=== PATIENT | female | born 1945 | race Caucasian/White ===

== ENCOUNTER → 2019-11-24 | Outpatient (CLI) | payer MEDICARE, OTHER ==
[~2019-11-24] MED LIST: ADV250INH INH; AMLO2.5T3 PO; BYST10TA2 PO; CREO24CA PO; DESV50TA PO; ECOT81TA5 PO; HUMA100I5 SQ; IRBE150T7 PO; LANTINJ4 SQ; LEVO112T2 PO; SERO1TAB3 PO; SPIR1CAP INH
== END ==
LOC: M LABSMTC 09:10
PROVIDERS: ATTEND Anesthesiology
DX: Z03.818 Encounter for observation for suspected exposure to other biological agents ruled out (principal); Z11.59 Encounter for screening for other viral diseases
CPT/HCPCS: C9803; U0003

== ENCOUNTER 2019-11-27 09:44 | Day surgery (SDC) | payer MEDICARE, OTHER ==
[~2019-11-27] VITALS: Ht 162.6 cm; Wt 92.0 kg
[~2019-11-27 09:44] MED LIST changes: +NS 1,000 ML IV ONE
--- NOTE | 2019-11-27 12:14 | ROOR ---
Patient Name: Kayla Tineo Procedure Date: 11/27/2019 11:42 AM Date of : 1945 Age: 74 Room: [facility] Gender: Female Note Status: Finalized Procedure: Upper Endoscopy + Biopsies Indications: Abnormal CT of the GI tract Providers: Monster Hyman MD Referring MD: Misha Fry DO Requesting Provider: Medicines: Monitored Anesthesia Care Complications: No immediate complications. Procedure: Pre-Anesthesia Assessment: - The heart rate, respiratory rate, oxygen saturations, blood pressure, adequacy of pulmonary ventilation, and response to care were monitored throughout the procedure. The Endoscope was introduced through the mouth, and advanced to the second part of duodenum. The upper GI endoscopy was accomplished without difficulty. The patient tolerated the procedure well. Findings: The Z-line was irregular and was found 40 cm from the incisors. Multiple biopsies were obtained with cold forceps for evaluation to rule out Long's Esophagus randomly at the gastroesophageal junction. A medium-sized hiatal hernia was present. No other significant abnormalities were identified in a careful examination of the stomach. A large frond-like/villous mass with no bleeding was found in the duodenal bulb. Biopsies were taken with a cold forceps for histology. The exam was otherwise without abnormality. Impression: - Z-line irregular, 40 cm from the incisors. - Medium-sized hiatal hernia. - Rule out malignancy, duodenal mass. Biopsied. - The examination was otherwise normal. - Multiple biopsies were obtained at the gastroesophageal junction. - The examination was otherwise normal. Recommendation: - Await pathology results. - Discharge patient to home. - Continue present medications. - Await pathology results. - Telephone GI clinic for pathology results in 1 week. - Perform an upper endoscopic ultrasound (UEUS) at appointment to be scheduled. - Return to referring physician. - The findings and recommendations were discussed with the patient's family. Monster Hyman MD Monster Hyman MD 11/27/2019 12:13:59 PM Electronically signed by Monster Hyman MD Number of Addenda: 0 Note Initiated On: 11/27/2019 11:42 AM Estimated Blood Loss: Estimated blood loss: none.
[2019-11-27] MEDS ORDERED: LIDOCAINE 2% 100MG/5ML SDV (FOR ANES.) As Ordered ONE (12:29)
[2019-11-27] MEDS ORDERED: fentaNYL 100 MCG/2 ML INJECTION (J3010) As Ordered ONE (12:29)
[2019-11-27] MEDS ORDERED: propofoL 500 MG/50 ML VIAL As Ordered ONE (12:30)
[2019-11-27 13:15] VITALS: BP 186/84
[2019-11-27] MEDS ORDERED: LR 1,000 ML IV SCH (13:15)
--- NOTE | 2019-11-28 10:54 | ECGEPIP ---
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
== END 2019-11-27 13:48 | disposition home or self-care (01) ==
LOC: M OPP 09:44
PROVIDERS: ATTEND Internal Medicine Gastroenterology
DX: K22.8 Other specified diseases of esophagus (principal); K44.9 Diaphragmatic hernia without obstruction or gangrene; K31.89 Other diseases of stomach and duodenum; R93.3 Abnormal findings on diagnostic imaging of other parts of digestive tract; Z85.118 Personal history of other malignant neoplasm of bronchus and lung
CPT/HCPCS: 43239; 88305; 93005; J3010

== ENCOUNTER → 2020-01-01 | Outpatient (CLI) | payer MEDICARE, OTHER ==
[~2020-01-01] MED LIST changes: -NS 1,000 ML IV ONE
== END ==
LOC: M LABSMTC 09:41
PROVIDERS: ATTEND Internal Medicine Gastroenterology
DX: Z01.818 Encounter for other preprocedural examination (principal); Z11.59 Encounter for screening for other viral diseases; Z20.828 Contact with and (suspected) exposure to other viral communicable diseases
CPT/HCPCS: C9803; U0003

== ENCOUNTER → 2021-02-12 | Outpatient (REF) | payer MEDICARE, OTHER | LOC: M LAB REF 18:58 | PROVIDERS: ATTEND Physician Assistant | DX: L57.0 Actinic keratosis (principal) | CPT/HCPCS: 11102; 88305; G0463 ==

== ENCOUNTER → 2021-03-12 | Outpatient (REF) | payer MEDICARE, OTHER | LOC: M LAB REF 16:20 | PROVIDERS: ATTEND Physician Assistant | DX: L57.0 Actinic keratosis (principal) | CPT/HCPCS: 11102; 88305; G0463 ==

== ENCOUNTER → 2021-06-09 | Outpatient (REF) | payer MEDICARE, OTHER | LOC: M LAB REF 17:24 | PROVIDERS: ATTEND Physician Assistant | DX: R21 Rash and other nonspecific skin eruption (principal) ==

== ENCOUNTER 2023-10-16 17:59 | Emergency (ER) | payer MEDICARE, OTHER ==
[~2023-10-16] VITALS: Ht 162.6 cm; Wt 94.5 kg
[~2023-10-16 17:59] MED LIST changes: -ADV500INH INH; -ALBU8.5H INH; -ELIQ5TAB PO; -INSUHUMDS SC; -SYNT125T PO; -VITA100093 PO
[2023-10-16] MEDS ORDERED: SODIUM CHLORIDE 0.9% INJ 10 ML SYR IV PRN (18:55)
[2023-10-16 19:28] LABS: INR 1.4; PARTIAL THROMBOPLASTIN TIME 30.9 SECONDS (24.8-34.2); PROTHROMBIN TIME 16.7 SECONDS (12.5-14.5)
[2023-10-16 19:35] LABS: ETHYL ALCOHOL (ETHANOL) 0.003 % (0.000-0.010); LIPASE 48 U/L (12-53)
[2023-10-16 19:37] LABS: CPK CREATINE PHOSPHOKINASE 94 U/L (34-145)
[2023-10-16 19:43] LABS: ALBUMIN 2.9 G/DL (3.2-5.2); ALKALINE PHOSPHATASE 122 U/L (46-116); ALT/SGPT 17 U/L (7.0-40); AST/SGOT 19 U/L (<34); BILIRUBIN,DIRECT < 0.1 MG/DL (<0.4); BILIRUBIN,TOTAL 0.2 MG/DL (0.3-1.2); BLOOD UREA NITROGEN 28 MG/DL (9-23); CARBON DIOXIDE LEVEL 26 MMOL/L (20-31); CHLORIDE LEVEL 106 MMOL/L (98-107); CK-MB VALUE MASS 1.6 NG/ML (<3.6); CREATININE FOR GFR 1.38 MG/DL (0.55-1.30); GLOMERULAR FILTRATION RATE 39.4 (>39); GLUCOSE, FASTING 118 MG/DL (74-106); POTASSIUM SERUM 4.5 MMOL/L (3.5-5.1); SODIUM LEVEL 140 MMOL/L (136-145); TOTAL PROTEIN 5.9 G/DL (5.7-8.2)
[2023-10-16] MEDS ORDERED: ISOVUE-370 76% 100ML VIAL As Ordered ONE (19:56)
[2023-10-16] MEDS: SUCRALFATE 1 GM TAB PO ONE (20:15)
[2023-10-16] MEDS: PANTOPRAZOLE SODIUM 40 MG in D5W 50 ML IV SCH (20:15)
[2023-10-16] MEDS ORDERED: INSUHUMDS SC (20:24)
[2023-10-16] MEDS ORDERED: SYNT125T PO (20:24)
[2023-10-16] MEDS ORDERED: ALBU8.5H INH (20:24)
[2023-10-16] MEDS ORDERED: ELIQ5TAB PO (20:24)
[2023-10-16] MEDS ORDERED: ADV500INH INH (20:24)
[2023-10-16] MEDS ORDERED: VITA100093 PO (20:24)
[2023-10-16] MEDS ORDERED: HOME MED LIST COMPLETE! XX SCH (20:25)
[2023-10-16 22:33] VITALS: BP 148/68; TEMP 98; O2SAT 97
[2023-10-16 23:50] LABS: RSV AMPLIFICATION NEGATIVE (NEGATIVE)
[2023-10-17] MEDS: IPRATROPIUM 0.5MG/ALBUTEROL 2.5MG INH SOL UD 3ML (DUONEB) NEB ONE (00:39)
[2023-10-17] MEDS ORDERED: LEVEMIR (INSULIN DETEMIR) 1 UNITS/0.01ML SC ONE ×2 (01:00→01:10)
[2023-10-17] MEDS: QUEtiapine FUMARATE 25 MG TAB PO ONE (01:06)
[2023-10-17 01:34] VITALS: BP 170/70
[2023-10-17] MEDS: LEVEMIR (INSULIN DETEMIR) 1 UNITS/0.01ML SC ONE (01:34)
[2023-10-17] MEDS: IRBESARTAN 150MG TAB PO STA (01:34)
[2023-10-17 02:20] VITALS: BP 138/64; O2SAT 99
[2023-10-17 06:25] VITALS: BP 106/59; TEMP 98; O2SAT 97
[2023-10-17 06:25] LABS: HEMATOCRIT 22.2 % (36.0-47.0); MEAN CORPUSCULAR HEMOGLOBIN 27.3 pg (27.0-33.0); MEAN CORPUSCULAR VOLUME 85.4 fl (80.0-96.0); PLATELET COUNT, AUTOMATED 498 10^3/uL (150-450)
[2023-10-17 06:26] LABS: HEMOGLOBIN 7.1 g/dl (12.0-15.5)
== END 2023-10-17 06:27 | disposition short-term general hospital (02) ==
LOC: M ED 17:59
DX: K92.2 Gastrointestinal hemorrhage, unspecified (principal); D64.9 Anemia, unspecified; I10 Essential (primary) hypertension; E11.9 Type 2 diabetes mellitus without complications; J44.9 Chronic obstructive pulmonary disease, unspecified; E03.9 Hypothyroidism, unspecified; D50.9 Iron deficiency anemia, unspecified; B95.3 Streptococcus pneumoniae as the cause of diseases classified elsewhere; R78.81 Bacteremia; R30.0 Dysuria; Z79.01 Long term (current) use of anticoagulants; Z79.4 Long term (current) use of insulin; Z79.52 Long term (current) use of systemic steroids; Z79.82 Long term (current) use of aspirin; Z79.899 Other long term (current) drug therapy; Z88.2 Allergy status to sulfonamides; Z88.6 Allergy status to analgesic agent; Z88.8 Allergy status to other drugs, medicaments and biological substances; Z91.011 Allergy to milk products; Z23 Encounter for immunization
CPT/HCPCS: 36415; 36430; 71045; 74177; 80047; 80053; 81001; 82077; 82248; 82550; 82553; 83550; 83605; 83690; 84484; 85025; 85027; 85384; 85610; 85730; 86140; 86850; 86900; 86901; 86920; 87086; 87631; 90471; 90472; 90620; 90734; 93005; 94640; 96365; 96366; 96372; 99285; C9113; G0463; J1815; P9016; Q9967

== ENCOUNTER → 2023-10-16 | Outpatient (CLI) | payer MEDICARE, OTHER ==
[~2023-10-16] MED LIST changes: +ADV500INH INH; +ALBU8.5H INH; +ELIQ5TAB PO; +INSUHUMDS SC; +IRBE150T27 PO; -IRBE150T7 PO; +SYNT125T PO; +VITA100093 PO
[2023-10-16 15:34] LABS: BASO # 0.1 10^3/uL (0.0-0.2); EOS # 0.2 10^3/uL (0.0-0.5); EOS % 1.6 % (0.0-3.0); LYMPH # 1.7 10^3/uL (1.5-5.0); LYMPH % 12.6 % (24.0-44.0); MEAN CORPUSCULAR HEMOGLOBIN 26.4 pg (27.0-33.0); MEAN CORPUSCULAR HGB CONC 30.9 g/dl (32.0-36.5); MEAN CORPUSCULAR VOLUME 85.5 fl (80.0-96.0); MONO # 0.8 10^3/uL (0.0-0.8); MONO % 5.7 % (2.0-8.0); NEUTROPHILS # 10.7 10^3/uL (1.5-8.5); NEUTROPHILS % 78.4 % (36.0-66.0); PLATELET COUNT, AUTOMATED 567 10^3/uL (150-450); RED BLOOD COUNT 1.93 10^6/uL (4.00-5.40); WHITE BLOOD COUNT 13.6 10^3/uL (4.0-10.0)
[2023-10-16 15:36] LABS: APPEARANCE, URINE HAZY (CLEAR); BACTERIA, URINE AUTO NEGATIVE (NEGATIVE); BILIRUBIN, URINE AUTO NEGATIVE (NEGATIVE); BLOOD, URINE BLOOD NEGATIVE (NEGATIVE); COLOR, URINE YELLOW (YELLOW); GLUCOSE, URINE (UA) AUTO 1+ mg/dL (NEGATIVE); KETONE, URINE AUTO TRACE mg/dL (NEGATIVE); LEUKOCYTE ESTERASE, URINE AUTO TRACE (NEGATIVE); MUCUS, URINE SMALL (NEGATIVE); NITRITE, URINE AUTO NEGATIVE (NEGATIVE); PROTEIN, URINE AUTO 2+ mg/dL (NEGATIVE); RBC, URINE AUTO 2 /HPF (0-3); SPECIFIC GRAVITY URINE AUTO 1.018 (1.002-1.035); SQUAMOUS EPITHELIAL CELL UR AU 2 /HPF (0-6); UROBILINOGEN, URINE AUTO 0.2 mg/dL (0.0-2.0); WBC, URINE AUTO 3 /HPF (0-3)
[2023-10-16 15:54] LABS: HEMATOCRIT 16.5 % (36.0-47.0); HEMOGLOBIN 5.1 g/dl (12.0-15.5)
[2023-10-16 16:08] LABS: C REACTIVE PROTEIN QUANTITATIV 1.2 MG/DL (<1.0)
[2023-10-16 16:10] LABS: ALBUMIN 2.8 G/DL (3.2-5.2); BILIRUBIN,TOTAL 0.2 MG/DL (0.3-1.2); CREATININE FOR GFR 1.26 MG/DL (0.55-1.30); GLOMERULAR FILTRATION RATE 43.7 (>39); POTASSIUM SERUM 4.9 MMOL/L (3.5-5.1); TOTAL PROTEIN 6.3 G/DL (5.7-8.2)
[2023-10-16 16:11] LABS: PERCENT SATURATION 2.2 % (13.2-45.0)
== END ==
LOC: M PLALAB 13:30
PROVIDERS: ATTEND Internal Medicine Infectious Disease
DX: D50.9 Iron deficiency anemia, unspecified (principal); B95.3 Streptococcus pneumoniae as the cause of diseases classified elsewhere; R78.81 Bacteremia; R30.0 Dysuria

== ENCOUNTER → 2023-10-16 | Outpatient (CLI) | payer MEDICARE, OTHER ==
[2023-10-16 15:45] LABS: BASO # 0.1 10^3/uL (0.0-0.2); EOS # 0.2 10^3/uL (0.0-0.5); EOS % 1.7 % (0.0-3.0); LYMPH # 1.8 10^3/uL (1.5-5.0); MEAN CORPUSCULAR HEMOGLOBIN 26.6 pg (27.0-33.0); MEAN CORPUSCULAR HGB CONC 30.5 g/dl (32.0-36.5); MONO # 0.8 10^3/uL (0.0-0.8); NEUTROPHILS # 10.5 10^3/uL (1.5-8.5); NEUTROPHILS % 77.8 % (36.0-66.0); PLATELET COUNT, AUTOMATED 572 10^3/uL (150-450); RED BLOOD COUNT 1.92 10^6/uL (4.00-5.40); WHITE BLOOD COUNT 13.5 10^3/uL (4.0-10.0)
[2023-10-16 15:51] LABS: HEMATOCRIT 16.7 % (36.0-47.0); HEMOGLOBIN 5.1 g/dl (12.0-15.5)
== END ==
LOC: M PLALAB 13:33
PROVIDERS: ATTEND Internal Medicine Pulmonary Disease
DX: J18.8 Other pneumonia, unspecified organism (principal)